=== PATIENT | female | born 1980 | race Caucasian/White ===

== ENCOUNTER 2022-07-10 14:28 | Outpatient (CLI) | payer BC | END 2022-07-10 14:29 | disposition home or self-care (01) | LOC: CSHMAMMO 14:28 | PROVIDERS: ATTEND Student in an Organized Health Care Education/Training Program | DX: Z12.31 Encounter for screening mammogram for malignant neoplasm of breast (principal); Z80.3 Family history of malignant neoplasm of breast; N63.15 Unspecified lump in the right breast, overlapping quadrants | CPT/HCPCS: 77063; 77067 ==

== ENCOUNTER 2022-07-17 07:54 | Outpatient (CLI) | payer BC | END 2022-07-17 07:55 | disposition home or self-care (01) | LOC: CSHMAMMO 07:54 | PROVIDERS: ATTEND Student in an Organized Health Care Education/Training Program | DX: N63.10 Unspecified lump in the right breast, unspecified quadrant (principal) | CPT/HCPCS: G0279 ==